=== PATIENT | female | born 1930 | race Caucasian/White ===

== ENCOUNTER 2016-09-18 18:11 | Emergency (ER) | payer OTHER ==
--- NOTE | 2016-09-18 19:25 | DIAGNOSTIC IMAGING REPORT ---
PROCEDURE: XR WRIST MIN 3 VIEWS - RIGHT INDICATION: TRAUMA/INJURY TECHNIQUE: Five view COMPARISON: None. FINDINGS: Mildly impacted intra-articular distal radial fracture with mild displacement of the fragments. No additional fractures. Severe degenerative changes of the first carpometacarpal joint. There is soft tissue swelling. IMPRESSION: 1. Impacted intra-articular distal right radius fracture 2. Severe first carpometacarpal joint degenerative changes.
--- NOTE | 2016-09-18 19:37 | ED NURSING NOTES ---
Clinical Report - Nurses [address] [place] [place] [address] 09/18/2016 18:13 Patient: RIP MORALES TRIAGE Triage time 18:30 Sep 18 2016. Acuity: LEVEL 4. Chief Complaint: INJURY TO RIGHT HAND and INJURY TO RIGHT WRIST. Alert. No acute distress. MERCEDES COMA SCORE: [place] Coma Scale: 15- eyes open spontaneously (4); best verbal response- oriented x 4 (5); best motor response- obeys commands (6). --18:37 Leigha Corcoran R.N. 18:29 09/18/16. BP: 147/73. HR: 67. RR: 18. O2 saturation: 99%. Temp: 98.5 F. Pain level now 3/10. --18:37 Leigha Corcoran R.N. Weight: 70.3 kg stated. Height/Length: 68 inches Per Patient. BMI: 23.6. --18:29 Leigha Corcoran R.N. Medications Warfarin Sodium Oral 4 mg (4mg almost everyday ). --18:34 Leigha Corcoran R.N. Metoprolol Tartrate Oral 25 mg. --18:35 Leigha Corcoran R.N. Levothyroxine Sodium Oral 0.6 mcg . --18:35 Leigha Corcoran R.N. Medication/allergy information source: the patient. --18:37 Leigha Corcoran R.N. Allergies None. --18:33 Leigha Corcoran R.N. History Arrived by private vehicle. Historian: patient. Primary physician (Dr. Jihan Araujo). ( Fell walking on the sidewalk, curb height changed and pt didn't see it. Happened at 1300. Swollen and deformity.). This occurred today. Mechanism of injury: fell. Treatment LAW REPORTER: None. PAST MEDICAL HX: Has not received seasonal influenza immunization. SOCIAL HX: Never smoker. No alcohol use or drug use. No infectious disease exposure. FALL RISK ASSESSMENT: Fall risk assessment completed. No fall risk identified. NUTRITIONAL RISK ASSESSMENT: The nutritional risk assessment revealed no deficiencies. FUNCTIONAL ASSESSMENT: Functional assessment: no impairments noted. LEARNING NEEDS ASSESSMENT: The learning needs assessment revealed no barriers. SKIN INTEGRITY ASSESSMENT: Skin integrity risk assessment completed. No skin integrity risk identified. --18:37 Leigha Corcoran R.N. Interventions ID band on patient. To room. --18:37 Leigha Corcoran R.N. NURSING PROGRESS NOTES Cold pack applied. Extremity elevated. --18:37 Leigha Corcoran R.N. Care transferred and report received (SAKINA Darden). --18:45 Mayuri Nicole R.N. Two patient identifiers checked. Call light placed in reach. Side rails up x 2. Bed placed in lowest position. Brakes of bed on. Patient ready for evaluation. --18:46 Mayuri Nicole R.N. ( Xray done in the room). --18:57 Mayuri Nicole R.N. 19:19 09/18/2016 Percocet (Oxycodone-Acetaminophen) PO 5/325 mg Tablets 1 tab given. Allergies verified, confirmed 5 rights and sedative warning given to the patient. --19:19 Mayuri Nicole R.N. 20:15. Lisa peoples upper extremity splint applied to right arm by nurse and tech. --20:21 Tito Schwartz R.N. DISPOSITION / DISCHARGE 20:18 09/18/16. BP: 144/74. HR: 87. RR: 20. O2 saturation: 100%. Temp: deferred. Pain level now: 10/25. 18:29 09/18/16. BP: 147/73. HR: 67. RR: 18. O2 saturation: 99%. Temp: 98.5 F. Pain level now 11/22. --20:19 Mayuri Nicole R.N. Departure time: 2019. Condition at departure: improved. No learning barriers present. Discharge instructions provided and reviewed with the patient and family. Reviewed warnings. Reviewed medication(s). Reviewed referral to an orthopedic surgeon. Verbalized understanding. Written instructions provided in Maldivian. The patient was discharged by the physician. She was discharged home and accompanied by family. She left the Emergency Department ambulatory and via private vehicle. Family member driving. --20:27 Tito Schwartz R.N. Locked/Released at 09/18/2016 20:27 by Tito Schwartz R.N.
--- NOTE | 2016-09-18 19:37 | ED ORDER SUMMARY ---
..... Patient: RIP MORALES OrderSheet [facility] VisitID: [id number] [address] [place] [address] 86y, F Registration Date/Time: 09/18/2016 ORDER SHEET Weight: 70.3 kg (stated) Allergies: None GENERAL ORDERS: Wrist 3 or 4V Right Urgent (18:37 09/18/2016 Madhu R.NAddi per protocol) (Ack 18:58 NHouse ER Tech1) (19:06 MCampbell) Splint (UE) (Right) (Sugar Tong) (Sugar Tong) (19:13 09/18/2016 Kaylie Fierro) (Ack 19:19 AMcQuoid ER Tech1) (20:17 RCollier R.N.) (20:17 SRoberts R.N.) Consult - Ortho (retro active for consult already placed at 19:00) (19:36 09/18/2016 Kaylie Fierro) (19:59 NHouse ER Tech1) MEDICATION ORDERS: Percocet PO 5/325 mg (HIGH ALERT MEDICATION, NOW) (19:13 09/18/2016 Kaylie Fierro) (Ack 19:16 SRoberts R.N.) (19:19 SRoberts R.N.) IV FLUIDS: ORDER SHEET NOTES: [Electronically signed by Tito Schwartz R.N. (20:27 09/18/2016)] [Electronically signed by Naren Duque Dr. (15:25 09/24/2016)] [Electronically locked/signed by Tito Schwartz R.N. (20:27 09/18/2016)]
--- NOTE | 2016-09-18 19:37 | ED NURSING NOTES ---
Clinical Report - Nurses [address] [place] [address] 09/18/2016 18:13 Patient: RIP MORALES TRIAGE Triage time 18:30 Sep 18 2016. Acuity: LEVEL 4. Chief Complaint: INJURY TO RIGHT HAND and INJURY TO RIGHT WRIST. Alert. No acute distress. MERCEDES COMA SCORE: [place] Coma Scale: 15- eyes open spontaneously (4); best verbal response- oriented x 4 (5); best motor response- obeys commands (6). --18:37 Leigha Corcoran R.N. 18:29 09/18/16. BP: 147/73. HR: 67. RR: 18. O2 saturation: 99%. Temp: 98.5 F. Pain level now 3/10. --18:37 Leigha Corcoran R.N. Weight: 70.3 kg stated. Height/Length: 68 inches Per Patient. BMI: 23.6. --18:29 Leigha Corcoran R.N. Medications Warfarin Sodium Oral 4 mg (4mg almost everyday ). --18:34 Leigha Corcoran R.N. Metoprolol Tartrate Oral 25 mg. --18:35 Leigha Corcoran R.N. Levothyroxine Sodium Oral 0.6 mcg . --18:35 Leigha Corcoran R.N. Medication/allergy information source: the patient. --18:37 Leigha Corcoran R.N. Allergies None. --18:33 Leigha Corcoran R.N. History Arrived by private vehicle. Historian: patient. Primary physician (Dr. Jihan Araujo). ( Fell walking on the sidewalk, curb height changed and pt didn't see it. Happened at 1300. Swollen and deformity.). This occurred today. Mechanism of injury: fell. Treatment EDGER LINER: None. PAST MEDICAL HX: Has not received seasonal influenza immunization. SOCIAL HX: Never smoker. No alcohol use or drug use. No infectious disease exposure. FALL RISK ASSESSMENT: Fall risk assessment completed. No fall risk identified. NUTRITIONAL RISK ASSESSMENT: The nutritional risk assessment revealed no deficiencies. FUNCTIONAL ASSESSMENT: Functional assessment: no impairments noted. LEARNING NEEDS ASSESSMENT: The learning needs assessment revealed no barriers. SKIN INTEGRITY ASSESSMENT: Skin integrity risk assessment completed. No skin integrity risk identified. --18:37 Leigha Corcoran R.N. Interventions ID band on patient. To room. --18:37 Leigha Corcoran R.N. NURSING PROGRESS NOTES Cold pack applied. Extremity elevated. --18:37 Leigha Corcoran R.N. Care transferred and report received (SAKINA Darden). --18:45 Mayuri Nicole R.N. Two patient identifiers checked. Call light placed in reach. Side rails up x 2. Bed placed in lowest position. Brakes of bed on. Patient ready for evaluation. --18:46 Mayuri Nicole R.N. ( Xray done in the room). --18:57 Mayuri Nicole R.N. 19:19 09/18/2016 Percocet (Oxycodone-Acetaminophen) PO 5/325 mg Tablets 1 tab given. Allergies verified, confirmed 5 rights and sedative warning given to the patient. --19:19 Mayuri Nicole R.N. 20:15. Lisa peoples upper extremity splint applied to right arm by nurse and tech. --20:21 Tito Schwartz R.N. DISPOSITION / DISCHARGE 20:18 09/18/16. BP: 144/74. HR: 87. RR: 20. O2 saturation: 100%. Temp: deferred. Pain level now: 10/25. 18:29 09/18/16. BP: 147/73. HR: 67. RR: 18. O2 saturation: 99%. Temp: 98.5 F. Pain level now 11/22. --20:19 Mayuri Nicole R.N. Departure time: 2019. Condition at departure: improved. No learning barriers present. Discharge instructions provided and reviewed with the patient and family. Reviewed warnings. Reviewed medication(s). Reviewed referral to an orthopedic surgeon. Verbalized understanding. Written instructions provided in Cymro. The patient was discharged by the physician. She was discharged home and accompanied by family. She left the Emergency Department ambulatory and via private vehicle. Family member driving. --20:27 Tito Schwartz R.N. Locked/Released at 09/18/2016 20:27 by Tito Schwartz R.N.
--- NOTE | 2016-09-18 19:37 | ED ORDER SUMMARY ---
..... Patient: RIP MORALES OrderSheet [facility] VisitID: [id number] [address] [place] [address] 86y, F Registration Date/Time: 09/18/2016 ORDER SHEET Weight: 70.3 kg (stated) Allergies: None GENERAL ORDERS: Wrist 3 or 4V Right Urgent (18:37 09/18/2016 Madhu R.NAddi per protocol) (Ack 18:58 NHouse ER Tech1) (19:06 MCampbell) Splint (UE) (Right) (Sugar Tong) (Sugar Tong) (19:13 09/18/2016 Kaylie Fierro) (Ack 19:19 AMcQuoid ER Tech1) (20:17 RCollier R.N.) (20:17 SRoberts R.N.) Consult - Ortho (retro active for consult already placed at 19:00) (19:36 09/18/2016 Kaylie Fierro) (19:59 NHouse ER Tech1) MEDICATION ORDERS: Percocet PO 5/325 mg (HIGH ALERT MEDICATION, NOW) (19:13 09/18/2016 Kaylie Fierro) (Ack 19:16 SRoberts R.N.) (19:19 SRoberts R.N.) IV FLUIDS: ORDER SHEET NOTES: [Electronically signed by Tito Schwartz R.N. (20:27 09/18/2016)] [Electronically signed by Naren Duque Dr. (15:25 09/24/2016)] [Electronically locked/signed by Tito Schwartz R.N. (20:27 09/18/2016)]
--- NOTE | 2016-09-24 15:25 | ED MAR SUMMARY ---
..... Medication Administration Record [facility] [address] [place] [place] [address] Patient: RIP MORALES Visit ID: [id number] 86y, F Weight: 70.3 kg Height/Length: 68 in BMI: 23.6 ALLERGIES: None Given 19:19 09/18/2016 Mayuri Nicole R.N. Medication Administered: PERCOCET [PO] (OXYCODONE-ACETAMINOPHEN), Dose: 1 tab 5/325 mg Tablets PO. Medication Ordered: Percocet PO 5/325 mg (HIGH ALERT MEDICATION, NOW).
--- NOTE | 2016-09-24 15:25 | ED MED RECONCILIATION SUMMARY ---
Patient: RIP MORALES Medication Reconciliation Report [facility] VisitID: [id number] [address] [place] [address] 86y, F Registration Date/Time: 09/18/2016 Weight: 70.3 kg Height/Length: 68 in. BMI: 23.6 ALLERGIES: None The patient's Home Medications are listed below: CONTINUE TAKING THE FOLLOWING MEDICATIONS: Levothyroxine Sodium Oral 0.6 mcg Metoprolol Tartrate Oral 25 mg Warfarin Sodium Oral 4 mg, 4mg almost everyday The source(s) of the original Home Medication information: patient The following Medications were given to the patient in the Emergency Department: Percocet [PO] PO 1 tab, administered: 09/18/2016 7:19:00 PM The following Medications were prescribed to the patient: Percocet 5 mg/325 mg: take 1 tablet orally every 6 hours as needed for pain. Dispense twenty (20). No refill. Substitution is permissible. -- Naren Duque Dr.
--- NOTE | 2016-09-24 15:25 | ED CLINICAL REPORT ---
Clinical Report - Physicians/Mid Levels [facility] [address] [place] [place] [address] 09/18/2016 18:13 [id number] Arrived- By private vehicle. Historian- patient. HISTORY OF PRESENT ILLNESS Chief Complaint: Injury to the right wrist. The injury happened today. (sidewalk). ( tripped on curb that was sticking up). Fell. Patient is experiencing moderate pain. Patient denies injury to the head or neck. No other injury. ( patient reports an injury to the head, loss of consciousness, pain/injury to the neck, chest, abdomen, pelvis, back, or other chemistries.). REVIEW OF SYSTEMS The patient has had swelling. No tingling, numbness, weakness, foreign body or skin laceration. All systems otherwise negative, except as recorded above. PAST HISTORY See nurses notes. Tetanus immunization status is up-to-date. Medications: Levothyroxine Sodium Oral 0.6 mcg . Metoprolol Tartrate Oral 25 mg. Warfarin Sodium Oral 4 mg (4mg almost everyday ). Allergies: None. SOCIAL HISTORY Never smoker. No alcohol use or drug use. Is a local resident. ADDITIONAL NOTES The nursing notes have been reviewed. PHYSICAL EXAM Vital Signs: 09/18/2016 18:29 BP: 147/73. HR: 67. RR: 18. O2 saturation: 99%. Temp: 98.5 F. Hypertensive. Oxygen saturation normal. Appearance: Alert. Oriented X3. No acute distress. Head: Head atraumatic. (. No hematoma, crepitus or bony abnormalities.). Eyes: Pupils equal, round and reactive to light. Eyes normal inspection. (No Lopez sign or raccoon eyes). ENT: No hemotympanum. Ears normal. Nose normal. Pharynx normal. Neck: Normal inspection. Neck supple. C-spine non-tender. No vertebral tenderness. CVS: Normal heart rate and rhythm. Heart sounds normal. Pulses normal. Respiratory: No respiratory distress. Breath sounds normal. Chest nontender. Abdomen: No visible injury. Soft and nontender. Bowel sounds normal. Back: No tenderness. Normal inspection. ROM normal. Skin: Skin warm and dry. Skin intact. Extremities: (The patient has obvious swelling and deformity to the distal wrist on the right. No crepitus. Compartments are soft. Skin is intact. Patient with 2+ radial pulse which is symmetrical to the contralateral side. 2. his examination is intact in all fingers. Capillary refill is less than 3 seconds in all fingers. No pain or tenderness the elbow, shoulder, rest of the forearm,arm, or neck.). Extremities otherwise negative. Neuro, Vascular and Tendons: Vascular status intact. Sensation intact. Motor intact. Tendon function intact. Neuro: Oriented X 3. No motor deficit. No sensory deficit. LABS, X-RAYS, AND EKG Rt Wrist X-ray: (comminuted distal wrist fracture of the distal radius on the right). Views: AP, lateral and oblique. The X-rays were independently viewed by me and interpreted by the radiologist. The X-rays were discussed with the radiologist (via PACS). PROGRESS AND PROCEDURES Splint Application: Sugar tong splint applied to right wrist. Splint applied by krystina with direct supervision by me. Reassessed extremity following splint application. Neurovascular intact. Follow-up recommended within 7 days. Continues to be neurovascularly intact. Course of Care: the patient is a otherwise healthy 86-year-old female presenting for evaluation of ground-level fall. Additional previous symptoms that would be contributing factor for the fall. Patient couldn't relate describes mechanical-type fall with tripping over part of the curb sticking out. Patient with likely injury to the wrist. No signs of neurovascular, or mass at this time. Pain medication offered. Patient otherwise in no acute distress. Evaluation was significant for distal radius fracture. Fragments appear to be comminuted and displaced. We'll consult orthopedic surgery for further management of the fracture. On my evaluation, do not feel I would be able to reduce the fracture fragments appropriately without significant risk of displacement after the fracture is reduced. Consult orthopedic surgery also confirms the patient likely not being able to maintain proper alignment even with Her reduction. Patient will be splinted and followed up in clinic. Patient continues to be neurovascularly intact. Discussed with patient workup, diagnosis, home care, follow-up, and return precautions. All questions answered. The patient expressed understanding of these instructions and was agreeable to them. Specifically, patient educated on splint care as well as signs for compartment syndrome. Critical care performed (35 minutes). Time is exclusive of separately billable procedures. Time includes: direct patient care, patient reassessment, coordination of patient care, interpretation of data, review of patient's medical records, medical consultation, family consultation regarding treatment decisions and documentation of patient care. Consult obtained. Orthopedic surgery. Disposition: Discharged. Condition: good. CLINICAL IMPRESSION 09/18/2016 18:29 BP: 147/73. HR: 67. RR: 18. O2 saturation: 99%. Temp: 98.5 F. Blood pressure normal. Oxygen saturation normal. Displaced and mildly angulated comminuted fracture of the right distal radius (acute). INSTRUCTIONS Warnings: GENERAL WARNINGS: Return or contact your physician immediately if your condition worsens or changes unexpectedly, if not improving as expected, or if other problems arise. Specifically return if pain, vomiting, bleeding, breathing difficulty or fever. worsening pain, redness, numbness, weakness, tingling, or other concerns. Your Current Medications: CONTINUE TAKING THE FOLLOWING MEDICATIONS: Levothyroxine Sodium Oral : 0.6 mcg. Metoprolol Tartrate Oral : 25 mg. Warfarin Sodium Oral : 4 mg, 4mg almost everyday. Prescription Medications: Percocet 5 mg/325 mg: take 1 tablet orally every 6 hours as needed for pain. Dispense twenty (20). No refill. Substitution is permissible. Follow-up: Return to the emergency department as needed. Follow up with your doctor in three days. Reason for referral: recheck today's concerns. Summary of care provided to patient via paper. Screening today revealed the patient's blood pressure to be in the normal range. The patient should follow up with a primary care provider for blood pressure management. Understanding of the discharge instructions verbalized by patient. Follow-up with: Follow up. Reason for referral: Contact this number for ortho clinic: [phone] in 1 week for follow appointment. Summary of care provided to patient. (Electronically signed by Naren Duque Dr. 09/24/2016 15:25) Kendra bravo RIP MORALES VisitID: [id number] Date: 09/18/2016 09/18/2016 20:42 Sling applied to right arm (Electronically signed by Rin Damico - 09/18/2016 20:42)
--- NOTE | 2016-09-24 15:25 | ED MED RECONCILIATION SUMMARY ---
Patient: RIP MORALES Medication Reconciliation Report [facility] VisitID: [id number] [address] [place] [address] 86y, F Registration Date/Time: 09/18/2016 Weight: 70.3 kg Height/Length: 68 in. BMI: 23.6 ALLERGIES: None The patient's Home Medications are listed below: CONTINUE TAKING THE FOLLOWING MEDICATIONS: Levothyroxine Sodium Oral 0.6 mcg Metoprolol Tartrate Oral 25 mg Warfarin Sodium Oral 4 mg, 4mg almost everyday The source(s) of the original Home Medication information: patient The following Medications were given to the patient in the Emergency Department: Percocet [PO] PO 1 tab, administered: 09/18/2016 7:19:00 PM The following Medications were prescribed to the patient: Percocet 5 mg/325 mg: take 1 tablet orally every 6 hours as needed for pain. Dispense twenty (20). No refill. Substitution is permissible. -- Naren Duque Dr.
--- NOTE | 2016-09-24 15:25 | ED MAR SUMMARY ---
..... Medication Administration Record [facility] [address] [place] [address] Patient: RIP MORALES Visit ID: [id number] 86y, F Weight: 70.3 kg Height/Length: 68 in BMI: 23.6 ALLERGIES: None Given 19:19 09/18/2016 Mayuri Nicole R.N. Medication Administered: PERCOCET [PO] (OXYCODONE-ACETAMINOPHEN), Dose: 1 tab 5/325 mg Tablets PO. Medication Ordered: Percocet PO 5/325 mg (HIGH ALERT MEDICATION, NOW).
--- NOTE | 2016-09-24 15:25 | ED DISCHARGE INSTRUCTIONS ---
Patient: RIP MORALES General Instructions [facility] VisitID: [id number] [place] [place] [address] 86y, F Registration Date/Time: 09/18/2016 09/18/2016 18:29 BP: 147/73. HR: 67. RR: 18. O2 saturation: 99%. Temp: 98.5 F. Blood pressure normal. Oxygen saturation normal. Displaced and mildly angulated comminuted fracture of the right distal radius (acute). INSTRUCTIONS Warnings: GENERAL WARNINGS: Return or contact your physician immediately if your condition worsens or changes unexpectedly, if not improving as expected, or if other problems arise. Specifically return if pain, vomiting, bleeding, breathing difficulty or fever. worsening pain, redness, numbness, weakness, tingling, or other concerns. Your Current Medications: CONTINUE TAKING THE FOLLOWING MEDICATIONS: Levothyroxine Sodium Oral : 0.6 mcg. Metoprolol Tartrate Oral : 25 mg. Warfarin Sodium Oral : 4 mg, 4mg almost everyday. Prescription Medications: Percocet 5 mg/325 mg: take 1 tablet orally every 6 hours as needed for pain. Dispense twenty (20). No refill. Substitution is permissible. Follow-up: Return to the emergency department as needed. Follow up with your doctor in three days. Reason for referral: recheck today's concerns. Summary of care provided to patient via paper. Screening today revealed the patient's blood pressure to be in the normal range. The patient should follow up with a primary care provider for blood pressure management. Understanding of the discharge instructions verbalized by patient. Follow-up with: Follow up. Reason for referral: Contact this number for ortho clinic: [phone] in 1 week for follow appointment. Summary of care provided to patient. ADDITIONAL INFORMATION Fracture: Wrist (General) You have a fracture (break) of a bone in your wrist. This may be a small crack or chip in the bone; or a major break with the broken parts pushed out of position. Wrist fractures are treated with a splint or cast. They take about 4-6 weeks to heal. Severe injuries may require surgery. Home Care: Keep your arm elevated to reduce pain and swelling. When sitting or lying down elevate your arm above the level of your heart. You can do this by placing your arm on a pillow that rests on your chest or on a pillow at your side. This is most important during the first 48 hours after injury. Apply an ice pack (ice cubes in a plastic bag, wrapped in a towel) over the injured area for 20 minutes every 1-2 hours the first day. You can place the ice pack inside the sling and directly over the splint/cast. Continue with ice packs 3-4 times a day for the next two days, then as needed for the relief of pain and swelling. Keep the cast/splint completely dry at all times. Bathe with your cast/splint out of the water, protected with a large plastic bag, rubber-banded at the top end. If a fiberglass splint/cast gets wet, you can dry it with a hair-dryer. You may use acetaminophen (Tylenol) or ibuprofen (Motrin, Advil) to control pain, unless another pain medicine was prescribed. [NOTE: If you have chronic liver or kidney disease or ever had a stomach ulcer or GI bleeding, talk with your doctor before using these medicines.] Follow Up with your doctor in one week, or as advised by our staff, to be sure the bone is healing properly. If a splint was applied, it will be changed to a cast during your follow-up visit. [NOTE: Any X-rays taken will be reviewed by a radiologist. You will be notified if there are any new findings that may affect your care.] Get Prompt Medical Attention if any of the following occur: The plaster cast or splint becomes wet or soft The fiberglass cast or splint remains wet for more than 24 hours Increased tightness or pain under the cast or splint Fingers become swollen, cold, blue, numb or tingly Oxycodone Hydrochloride, Acetaminophen Oral tablet What is this medicine? ACETAMINOPHEN; OXYCODONE (a set a LORI jimena fen; ox i KOE done) is a pain reliever. It is used to treat mild to moderate pain. How should I use this medicine? Take this medicine by mouth with a full glass of water. Follow the directions on the prescription label. Take your medicine at regular intervals. Do not take your medicine more often than directed. Talk to your field crop farmer regarding the use of this medicine in children. Special care may be needed. Patients over 65 years old may have a stronger reaction and need a smaller dose. What side effects may I notice from receiving this medicine? Side effects that you should report to your doctor or health animal care worker as soon as possible: allergic reactions like skin rash, itching or hives, swelling of the face, lips, or tongue breathing difficulties, wheezing confusion light headedness or fainting spells severe stomach pain yellowing of the skin or the whites of the eyes Side effects that usually do not require medical attention (report to your doctor or health animal care worker if they continue or are bothersome): dizziness drowsiness nausea vomiting What may interact with this medicine? alcohol antihistamines barbiturates like amobarbital, butalbital, butabarbital, methohexital, pentobarbital, phenobarbital, thiopental, and secobarbital benztropine drugs for bladder problems like solifenacin, trospium, oxybutynin, tolterodine, hyoscyamine, and methscopolamine drugs for breathing problems like ipratropium and tiotropium drugs for certain stomach or intestine problems like propantheline, homatropine methylbromide, glycopyrrolate, atropine, belladonna, and dicyclomine general anesthetics like etomidate, ketamine, nitrous oxide, propofol, desflurane, enflurane, halothane, isoflurane, and sevoflurane medicines for depression, anxiety, or psychotic disturbances medicines for sleep muscle relaxants naltrexone narcotic medicines (opiates) for pain phenothiazines like perphenazine, thioridazine, chlorpromazine, mesoridazine, fluphenazine, prochlorperazine, promazine, and trifluoperazine scopolamine tramadol trihexyphenidyl What if I miss a dose? If you miss a dose, take it as soon as you can. If it is almost time for your next dose, take only that dose. Do not take double or extra doses. Where should I keep my medicine? Keep out of the reach of children. This medicine can be abused. Keep your medicine in a safe place to protect it from theft. Do not share this medicine with anyone. Selling or giving away this medicine is dangerous and against the law. Store at room temperature between 20 and 25 degrees C (68 and 77 degrees F). Keep container tightly closed. Protect from light. This medicine may cause accidental overdose and if it is taken by other adults, children, or pets. Flush any unused medicine down the toilet to reduce the chance of harm. Do not use the medicine after the expiration date. What should I tell my health care provider before I take this medicine? They need to know if you have any of these conditions: brain tumor Crohn's disease, inflammatory bowel disease, or ulcerative colitis drink more than 3 alcohol containing drinks per day drug abuse or addiction head injury heart or circulation problems kidney disease or problems going to the bathroom liver disease lung disease, asthma, or breathing problems an unusual or allergic reaction to acetaminophen, oxycodone, other opioid analgesics, other medicines, foods, dyes, or preservatives or trying to get breast-feeding What should I watch for while using this medicine? Tell your doctor or health animal care worker if your pain does not go away, if it gets worse, or if you have new or a different type of pain. You may develop tolerance to the medicine. Tolerance means that you will need a higher dose of the medication for pain relief. Tolerance is normal and is expected if you take this medicine for a long time. Do not suddenly stop taking your medicine because you may develop a severe reaction. Your body becomes used to the medicine. This does NOT mean you are addicted. Addiction is a behavior related to getting and using a drug for a non-medical reason. If you have pain, you have a medical reason to take pain medicine. Your doctor will tell you how much medicine to take. If your doctor wants you to stop the medicine, the dose will be slowly lowered over time to avoid any side effects. You may get drowsy or dizzy. Do not drive, use machinery, or do anything that needs mental alertness until you know how this medicine affects you. Do not stand or sit up quickly, especially if you are an older patient. This reduces the risk of dizzy or fainting spells. Alcohol may interfere with the effect of this medicine. Avoid alcoholic drinks. There are different types of narcotic medicines (opiates) for pain. If you take more than one type at the same time, you may have more side effects. Give your health care provider a list of all medicines you use. Your doctor will tell you how much medicine to take. Do not take more medicine than directed. Call emergency for help if you have problems breathing. The medicine will cause constipation. Try to have a bowel movement at least every 2 to 3 days. If you do not have a bowel movement for 3 days, call your doctor or health animal care worker. Do not take Tylenol (acetaminophen) or medicines that have acetaminophen with this medicine. Too much acetaminophen can be very dangerous. Many nonprescription medicines contain acetaminophen. Always read the labels carefully to avoid taking more acetaminophen. You have been given the following additional information: Fracture, Wrist [General] Oxycodone Hydrochloride, Acetaminophen Oral tablet (Electronically signed by Naren Duque Dr. 09/24/2016 15:25)
== END 2016-09-18 20:20 | disposition home or self-care (01) ==
LOC: ED SRH 18:11
DX: S52.571A Other intraarticular fracture of lower end of right radius, initial encounter for closed fracture (principal); W01.0XXA Fall on same level from slipping, tripping and stumbling without subsequent striking against object, initial encounter; Y93.01 Activity, walking, marching and hiking; Y92.480 Sidewalk as the place of occurrence of the external cause; Y99.9 Unspecified external cause status; Z79.01 Long term (current) use of anticoagulants; Z79.899 Other long term (current) drug therapy

== ENCOUNTER 2017-02-15 13:51 | Emergency (ER) | payer OTHER ==
--- NOTE | 2017-02-15 14:28 | ED ORDER SUMMARY ---
..... Patient: RIP MORALES OrderSheet [facility] VisitID: [id number] [address] [place] [place] [address] 86y, F Registration Date/Time: 02/15/2017 ORDER SHEET Weight: 68.9 kg (stated) Allergies: None GENERAL ORDERS: MEDICATION ORDERS: Doxycycline Hyclate PO 100 mg (NOW) (14:25 02/15/2017 Kaylie Fierro) (Ack 14:27 MWinterer R.N.) (14:28 MWinterer R.N.) IV FLUIDS: ORDER SHEET NOTES: [Electronically signed by Candi Deng R.N. (14:41 02/15/2017)] [Electronically signed by Naren Duque Dr. (09:39 02/18/2017)] [Electronically locked/signed by Candi Deng R.N. (14:41 02/15/2017)]
--- NOTE | 2017-02-15 14:28 | ED CLINICAL REPORT ---
Clinical Report - Physicians/Mid Levels [facility] [address] [place] [address] 02/15/2017 13:52 Patient: RIP MORALES Time Seen: 1419. Arrived- By private vehicle. Historian- patient. HISTORY OF PRESENT ILLNESS Chief Complaint: SKIN RASH. This started few weeks ago and is still present and worsening. It was abrupt in onset and has been constant but is not gone now. It is described as painful. It has been located on the left lower extremity. 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 (patient states that she had cut herself on a piece of metal several weeks ago. Patient states that she's been following up in wound clinic. Patient states that she's been following their instructions however this morning noted worsening of the area around the wound. States that the redness has spread. No change in discharge from the wound itself. No fever or nausea and vomiting. Patient states her tetanus is up-to-date.). Similar symptoms previously: None. Recent medical care: Not recently seen/assessed. REVIEW OF SYSTEMS No fever, chills, difficulty breathing, chest pain or nausea. No vomiting. All systems otherwise negative, except as recorded above. PAST HISTORY See nurses notes. Tetanus immunization status is up-to-date. SOCIAL HISTORY Never smoker. No alcohol use or drug use. No recent travel. Is a local resident. ADDITIONAL NOTES The nursing notes have been reviewed. PHYSICAL EXAM Vital Signs: 02/15/2017 14:00 BP: 136/52. HR: 72. RR: 18. O2 saturation: 98%. Temp: 97.7 F. Pain level now: 3/10. Blood pressure normal. Oxygen saturation normal. Appearance: Alert. Oriented X3. No acute distress. CVS: Normal heart rate and rhythm. Heart sounds normal. Respiratory: No respiratory distress. Breath sounds normal. Chest nontender. Abdomen: Nontender. No organomegaly. Skin: Large area of erythema with tenderness, warmth and swelling (left anterior gregorio). Extremities: Normal external inspection. Extremities nontender. Neuro: Oriented X 3. No motor deficit. No sensory deficit. PROGRESS AND PROCEDURES Course of Care: the patient is a pleasant 86-year-old female presenting for evaluation of left-sided wound infection. Patient with obvious cellulitis. Patient states he she is Already on antibiotics. I discussion with the patient regards to admission to the hospital versus outpatient management. After sometime deliberating the pros and cons of the admission versus outpatient therapy, patient decided upon outpatient therapy. Feel that this is reasonable given patient's history and overall nontoxic appearance. Patient states that she will return immediately for any worsening. Because the patient's recent antibiotic therapy, will be providing patient with doxycycline. No signs of gangrene. Discussed with the patient workup here in the emergency department including diagnosis, home care, follow-up, and return precautions. All questions have been answered. The patient expressed understanding of these instructions and was agreeable to them. Disposition: Discharged. Condition: good. CLINICAL IMPRESSION Cellulitis of the left lower leg. INSTRUCTIONS Warnings: GENERAL WARNINGS: Return or contact your physician immediately if your condition worsens or changes unexpectedly, if not improving as expected, or if other problems arise. Specifically return if pain, vomiting, bleeding, breathing difficulty or fever. Your Current Medications: STOP TAKING THE FOLLOWING MEDICATIONS: Clindamycin HCl Oral : 300 mg 2x a day. CONTINUE TAKING THE FOLLOWING MEDICATIONS: Levothyroxine Sodium Oral : 0.6 mcg. Metoprolol Tartrate Oral : 25 mg. Warfarin Sodium Oral : 4 mg, 4mg almost everyday. Prescription Medications: Doxycycline 100 mg: Take 1 capsule orally every 12 hours for 10 days. No refill. (disp 20 caps) Follow-up: Return to the emergency department as needed. Follow up with your doctor in three days. Reason for referral: recheck today's concerns. Summary of care provided to patient via paper. Screening today revealed the patient's blood pressure to be in the normal range. The patient should follow up with a primary care provider for blood pressure management. Understanding of the discharge instructions verbalized by patient. (Electronically signed by Naren Duque Dr. 02/18/2017 9:39)
--- NOTE | 2017-02-15 14:28 | ED ORDER SUMMARY ---
..... Patient: RIP MORALES OrderSheet [facility] VisitID: [id number] [address] [place] [address] 86y, F Registration Date/Time: 02/15/2017 ORDER SHEET Weight: 68.9 kg (stated) Allergies: None GENERAL ORDERS: MEDICATION ORDERS: Doxycycline Hyclate PO 100 mg (NOW) (14:25 02/15/2017 Kaylie Fierro) (Ack 14:27 MWinterer R.N.) (14:28 MWinterer R.N.) IV FLUIDS: ORDER SHEET NOTES: [Electronically signed by Candi Deng R.N. (14:41 02/15/2017)] [Electronically signed by Naren Duque Dr. (09:39 02/18/2017)] [Electronically locked/signed by Candi Deng R.N. (14:41 02/15/2017)]
--- NOTE | 2017-02-15 14:28 | ED NURSING NOTES ---
Clinical Report - Nurses [facility] [place] [address] [place] [address] 02/15/2017 13:52 Patient: RIP MORALES TRIAGE Acuity: LEVEL 4. Chief Complaint: LEFT LOWER EXTREMITY REDNESS. Location of symptoms- left leg. Alert. No acute distress. SEPSIS SCREEN: Sepsis Screen. Negative (no infection suspected/documented). --14:07 Candi Deng R.N. 14:00 02/15/17. BP: 136/52. HR: 72. RR: 18. O2 saturation: 98%. Temp: 97.7 F (oral). Pain level now: 11/22. --14: Candi Deng R.N. Weight: 68.9 kg stated. Height/Length: 68 inches Per Patient. BMI: 23.1. --14:28 Candi Deng R.N. Medications Levothyroxine Sodium Oral 0.6 mcg . Metoprolol Tartrate Oral 25 mg. Warfarin Sodium Oral 4 mg (4mg almost everyday ). --14:04 Candi Deng R.N. Clindamycin HCl Oral 300 mg, 2x a day. --14:10 Candi Deng R.N. The following entry was struck by Candi Deng R.N., 14:09 (02/15/17) Reason - other. <<STRICKEN ENTRY-- Penicillin V Potassium Oral. --14:05 Candi Deng R.N. --END STRIKE>>. Medication/allergy information source: the patient. --14:07 Candi Deng R.N. Allergies None. --14:05 Candi Deng R.N. History Arrived by private vehicle, and unaccompanied. Injury occurred. This occurred (2 weeks ago). ( Pt states she was gardening 2 weeks ago and "gouged my leg". Pt reports she was seen at the [facility] and referred to wound care. Pt was last seen at wound care 2 days ago, and has an appointment next , but feels the wound is getting more red. pt states she is doing her own dressing changes.). NUTRITIONAL RISK ASSESSMENT: The nutritional risk assessment revealed no deficiencies. FUNCTIONAL ASSESSMENT: Functional assessment: no impairments noted. LEARNING NEEDS ASSESSMENT: The learning needs assessment revealed no barriers. FALL RISK ASSESSMENT: Fall risk assessment completed. Risk factors identified include patient age greater than 65 years. SKIN INTEGRITY ASSESSMENT: Skin integrity risk assessment completed. No skin integrity risk identified. --14:07 Candi Deng R.N. PROBLEMS: Thyroid Disease. Hypertension. Wrist Fracture. --14:05 Candi Deng R.N. Assessment GENERAL / NEURO / PSYCH: Alert. Oriented X 4. Appears in no acute distress. [place] Coma Scale: 15- eyes open spontaneously (4); best verbal response- oriented x 4 (5); best motor response- obeys commands (6). Patient appears calm and cooperative. RESPIRATORY: Respirations not labored. CVS: Normal sinus rhythm noted. Capillary refill less than 2 seconds. GI / : Abdomen soft. SKIN: Mucous membranes are pink. Skin is warm and dry. --14: Candi Deng R.N. Interventions ID band on patient. To treatment room. --14: Candi Deng R.N. PHYSICAL ASSESSMENT Ambulatory to room. GENERAL / NEURO / PSYCH: Oriented X 4. Alert. Appears in no acute distress. EXTREMITIES: Extremity pulses are within normal limits. Neuro-vascular status intact to the extremity. Normal gait. Left leg: tenderness and erythema. SKIN: Skin is warm and dry. --14:08 Candi Deng R.N. NURSING PROGRESS NOTES 14:02/15/17. Patient gowned. Two patient identifiers checked. Call light placed in reach. Side rails up x 1. Bed placed in lowest position. Brakes of bed on. Patient ready for evaluation- chart flagged and ED physician notified. --14:09 Candi Deng R.N. 14:28 02/15/2017 DOXYCYCLINE HYCLATE PO 100 mg given. Allergies verified and confirmed 5 rights. --14:28 Candi Deng R.N. 14:30. Applied clean dressing consisting of 4x4 gauze. Secured with tape. --14:39 Candi Deng R.N. DISPOSITION / DISCHARGE Departure time: 14:35 Feb 15 2017. Condition at departure: unchanged and stable. No learning barriers present. Reviewed medication(s) side effects, precautions, dosing and course information. Prescription(s) given to the patient (Doxycycline). Patient verbalized understanding. Written instructions provided in [place] Island[place]. The patient was discharged by the physician. She was discharged home. She left the Emergency Department ambulatory and via private vehicle. Patient driving. --14:40 Candi Deng R.N. Locked/Released at 02/15/2017 14:41 by Candi Deng R.N.
--- NOTE | 2017-02-18 09:39 | ED MAR SUMMARY ---
..... Medication Administration Record [facility] [address] [place] [place] [address] Patient: RIP MORALES Visit ID: [id number] 86y, F Weight: 68.9 kg Height/Length: 68 in BMI: 23.1 ALLERGIES: None Given 14:28 02/15/2017 Candi Deng R.N. Medication Administered: DOXYCYCLINE HYCLATE [PO], Dose: 100 mg PO. Medication Ordered: Doxycycline Hyclate PO 100 mg (NOW).
--- NOTE | 2017-02-18 09:39 | ED DISCHARGE INSTRUCTIONS ---
Patient: RIP MORALES General Instructions [facility] VisitID: [id number] [address] [place] [place] [address] 86y, F Registration Date/Time: 02/15/2017 Cellulitis of the left lower leg. INSTRUCTIONS Warnings: GENERAL WARNINGS: Return or contact your physician immediately if your condition worsens or changes unexpectedly, if not improving as expected, or if other problems arise. Specifically return if pain, vomiting, bleeding, breathing difficulty or fever. Your Current Medications: STOP TAKING THE FOLLOWING MEDICATIONS: Clindamycin HCl Oral : 300 mg 2x a day. CONTINUE TAKING THE FOLLOWING MEDICATIONS: Levothyroxine Sodium Oral : 0.6 mcg. Metoprolol Tartrate Oral : 25 mg. Warfarin Sodium Oral : 4 mg, 4mg almost everyday. Prescription Medications: Doxycycline 100 mg: Take 1 capsule orally every 12 hours for 10 days. No refill. (disp 20 caps) Follow-up: Return to the emergency department as needed. Follow up with your doctor in three days. Reason for referral: recheck today's concerns. Summary of care provided to patient via paper. Screening today revealed the patient's blood pressure to be in the normal range. The patient should follow up with a primary care provider for blood pressure management. Understanding of the discharge instructions verbalized by patient. ADDITIONAL INFORMATION Cellulitis You have an infection of the skin known as cellulitis. This usually starts with a scrape, cut, insect bite, blister or other opening in the skin which becomes infected. This is a serious condition. It must be watched closely to be sure the infection is not spreading. With antibiotic treatment, the size of the red area will gradually shrink in size until the skin returns to normal. This will take 7-10 days. The red area should never increase in size once the antibiotic medicine has been started. Occasionally, an infection will be resistant to one antibiotic and another one will have to be used. Home Care: 1) Limit the use of the affected part, since excess movement can cause the infection to spread. 2) If the infection is on your leg, walk as little as possible during the first few days of the treatment. Keep your leg elevated while sitting. This will reduce swelling. 3) Take all of the antibiotic medicine exactly as directed until it is gone. Be careful not to miss any doses, especially during the first seven days. Follow Up with your doctor or this facility as directed. Check the infected area daily for the warning signs listed below. Get Prompt Medical Attention if any of the following occur: -- Spreading area of redness -- Increasing swelling or pain -- Appearance of pus or drainage -- Fever over 100.4 F (38.0 C) oral, or over 101.4 F (38.6 C) rectal, after two days on antibiotics Staph Infection (MRSA) "Staph" is the short name for the common bacteria called "staphylococcus aureus". Staph bacteria are often present on the skin without causing an infection. If it gets under the skin an infection occurs. This causes redness, tenderness, swelling and sometimes fluid drainage. MRSA stands for "Methicillin-Resistant Staph Aureus". Unlike a common staph infection, MRSA bacteria are resistant to the usual antibiotics and harder to treat. Also, MRSA is more toxic than common staph bacteria. It can spread quickly throughout the body and cause a life-threatening illness. MRSA is spread to others by direct physical contact with the bacteria. MRSA can also be transmitted from items contaminated by a person who has the bacteria, such as bandages, towels, bed sheets, or sports equipment. It is not spread through the air. Once you have a MRSA skin infection, you are at risk of having it recur in the future. If MRSA infection is suspected, the doctor may take a wound culture to confirm the diagnosis. Any abscess will be drained. One or sometimes two antibiotics that work against MRSA will be prescribed. Home Care: 1) Take any antibiotics prescribed exactly as directed until they are gone. 2) Follow the same washing procedures as outlined for Household Members below. 3) Keep draining wounds covered with clean, dry bandages. Change dressings as they become soiled. 4) You and those in contact with you should wash their hands frequently with soap and warm water or use an alcohol-based hand occupancy specialist. Do this after each time you change the bandage or touch the wound. 5) Avoid sharing personal items such as towels, washcloths, razors, clothing, or uniforms. Wash soiled sheets, towels or clothes in hot water with laundry detergent. Use an automatic clothes dryer set on high to kill any remaining bacteria. 6) Remove any artificial nails and nail [place]. 7) If you use a gym, wipe down equipment before and after each use. Treatment Of Household Members If you have been diagnosed with possible MRSA infection, those living with you are at higher risk of carrying the bacteria on their skin or in their nose, even if there is no sign of infection. Bacteria must be removed from the skin of all household members (including you) at the same time, so that it is not passed back and forth. Advise them to remove the bacteria as follows: Wash your whole body (scalp to toes) daily for five days with Hibiclens (chlorhexidine). Scrub fingernails with a brush for one minute twice a day. If any skin infections are present (boils, abscess, infected cut) these must be treated by a doctor. Washing alone will not treat a MRSA infection. Clean counter tops and children's toys; do not share personal items such as toothbrush and razors. It is okay to share glasses, plates, utensils. If antibiotic ointment was prescribed use it as directed. Follow Up with your doctor or as advised by our staff. If a wound culture was taken, call as directed in two days to obtain the results. If the culture result is positive for MRSA, tell medical personnel in the future that you were treated for this type of infection. Get Prompt Medical Attention if any of the following occur: -- Increasing redness, swelling or pain -- Red streaks in the skin around the wound -- Weakness or dizziness -- New appearance of pus or drainage from the wound -- New fever over 100.4 F (38.0 C) Doxycycline Monohydrate Oral tablet What is this medicine? DOXYCYCLINE (dox crista panda) is a tetracycline antibiotic. It kills certain bacteria or stops their growth. It is used to treat many kinds of infections, like dental, skin, respiratory, and urinary tract infections. It also treats acne, Lyme disease, malaria, and certain sexually transmitted infections. How should I use this medicine? Take this medicine by mouth with a full glass of water. Follow the directions on the prescription label. It is best to take this medicine without food, but if it upsets your stomach take it with food. Take your medicine at regular intervals. Do not take your medicine more often than directed. Take all of your medicine as directed even if you think you are better. Do not skip doses or stop your medicine early. Talk to your family services worker regarding the use of this medicine in children. Special care may be needed. While this drug may be prescribed for children as young as 8 years old for selected conditions, precautions do apply. What side effects may I notice from receiving this medicine? Side effects that you should report to your doctor or health career orientation teacher as soon as possible: allergic reactions like skin rash, itching or hives, swelling of the face, lips, or tongue difficulty breathing fever itching in the rectal or genital area pain on swallowing redness, blistering, peeling or loosening of the skin, including inside the mouth severe stomach pain or cramps unusual bleeding or bruising unusually weak or tired yellowing of the eyes or skin Side effects that usually do not require medical attention (report to your doctor or health career orientation teacher if they continue or are bothersome): diarrhea loss of appetite nausea, vomiting What may interact with this medicine? antacids barbiturates control pills bismuth subsalicylate carbamazepine methoxyflurane other antibiotics phenytoin vitamins that contain iron warfarin What if I miss a dose? If you miss a dose, take it as soon as you can. If it is almost time for your next dose, take only that dose. Do not take double or extra doses. Where should I keep my medicine? Keep out of the reach of children. Store at room temperature, below 30 degrees C (86 degrees F). Protect from light. Keep container tightly closed. Throw away any unused medicine after the expiration date. Taking this medicine after the expiration date can make you seriously ill. What should I tell my health care provider before I take this medicine? They need to know if you have any of these conditions: liver disease long exposure to sunlight like working outdoors stomach problems like colitis an unusual or allergic reaction to doxycycline, tetracycline antibiotics, other medicines, foods, dyes, or preservatives or trying to get breast-feeding What should I watch for while using this medicine? Tell your doctor or health career orientation teacher if your symptoms do not improve. Do not treat diarrhea with over the counter products. Contact your doctor if you have diarrhea that lasts more than 2 days or if it is severe and watery. Do not take this medicine just before going to bed. It may not dissolve properly when you lay down and can cause pain in your throat. Drink plenty of fluids while taking this medicine to also help reduce irritation in your throat. This medicine can make you more sensitive to the sun. Keep out of the sun. If you cannot avoid being in the sun, wear protective clothing and use sunscreen. Do not use sun lamps or tanning beds/booths. control pills may not work properly while you are taking this medicine. Talk to your doctor about using an extra method of control. If you are being treated for a sexually transmitted infection, avoid sexual contact until you have finished your treatment. Your sexual partner may also need treatment. Avoid antacids, aluminum, calcium, magnesium, and iron products for 4 hours before and 2 hours after taking a dose of this medicine. If you are using this medicine to prevent malaria, you should still protect yourself from contact with mosquitos. Stay in screened-in areas, use mosquito nets, keep your body covered, and use an insect repellent. You have been given the following additional information: Cellulitis MRSA Skin Infection, Suspected Or Confirmed Doxycycline Monohydrate Oral tablet (Electronically signed by Naren Duque Dr. 02/18/2017 9:39)
--- NOTE | 2017-02-18 09:39 | ED MAR SUMMARY ---
..... Medication Administration Record [facility] [address] [place] [address] Patient: RIP MORALES Visit ID: [id number] 86y, F Weight: 68.9 kg Height/Length: 68 in BMI: 23.1 ALLERGIES: None Given 14:28 02/15/2017 Candi Deng R.N. Medication Administered: DOXYCYCLINE HYCLATE [PO], Dose: 100 mg PO. Medication Ordered: Doxycycline Hyclate PO 100 mg (NOW).
--- NOTE | 2017-02-18 09:39 | ED MED RECONCILIATION SUMMARY ---
Patient: RIP MORALES Medication Reconciliation Report [facility] VisitID: [id number] [address] [place] [address] 86y, F Registration Date/Time: 02/15/2017 Weight: 68.9 kg Height/Length: 68 in. BMI: 23.1 ALLERGIES: None The patient's Home Medications are listed below: STOP TAKING THE FOLLOWING MEDICATIONS: Clindamycin HCl Oral 300 mg, 2x a day CONTINUE TAKING THE FOLLOWING MEDICATIONS: Levothyroxine Sodium Oral 0.6 mcg Metoprolol Tartrate Oral 25 mg Warfarin Sodium Oral 4 mg, 4mg almost everyday The source(s) of the original Home Medication information: patient The following Medications were given to the patient in the Emergency Department: DOXYCYCLINE HYCLATE [PO] PO 100 mg, administered: 02/15/2017 2:28:00 PM The following Medications were prescribed to the patient: Doxycycline 100 mg: Take 1 capsule orally every 12 hours for 10 days. No refill.(disp 20 caps) -- Naren Duque Dr.
--- NOTE | 2017-02-18 09:39 | ED MED RECONCILIATION SUMMARY ---
Patient: RIP MORALES Medication Reconciliation Report [facility] VisitID: [id number] [address] [place] [place] [address] 86y, F Registration Date/Time: 02/15/2017 Weight: 68.9 kg Height/Length: 68 in. BMI: 23.1 ALLERGIES: None The patient's Home Medications are listed below: STOP TAKING THE FOLLOWING MEDICATIONS: Clindamycin HCl Oral 300 mg, 2x a day CONTINUE TAKING THE FOLLOWING MEDICATIONS: Levothyroxine Sodium Oral 0.6 mcg Metoprolol Tartrate Oral 25 mg Warfarin Sodium Oral 4 mg, 4mg almost everyday The source(s) of the original Home Medication information: patient The following Medications were given to the patient in the Emergency Department: DOXYCYCLINE HYCLATE [PO] PO 100 mg, administered: 02/15/2017 2:28:00 PM The following Medications were prescribed to the patient: Doxycycline 100 mg: Take 1 capsule orally every 12 hours for 10 days. No refill.(disp 20 caps) -- Naren Duque Dr.
== END 2017-02-15 14:35 | disposition home or self-care (01) ==
LOC: ED SRH 13:51
DX: L03.116 Cellulitis of left lower limb (principal)